=== PATIENT | female | born 1945 | race Caucasian/White ===

== ENCOUNTER 2021-08-23 16:47 | Emergency (ER) | payer MEDICARE, SELFPAY ==
[2021-08-23 16:50] VITALS: BP 160/89; PULSE 65; RESP 17; TEMP 36.1; O2SAT 96; BMI 28.3
--- NOTE | 2021-08-23 16:54 | EKG12_ITS ---
Test Reason : CHEST HEAVINESS Blood Pressure : / mmHG Vent. Rate : 066 BPM Atrial Rate : 066 BPM P-R Int : 152 ms QRS Dur : 102 ms QT Int : 432 ms P-R-T Axes : 048 -18 040 degrees QTc Int : 452 ms Normal sinus rhythm Normal ECG Confirmed by DAISY SOTO, MEHUL ([id number]), advertising editor ROSY ROMO ([id number]) on 08/25/2021 10:39:10 AM Referred By: AFIA Confirmed By:MEHUL VILLA MD
--- NOTE | 2021-08-23 17:04 | NURSING ---
NO OLD EKGS
--- NOTE | 2021-08-23 17:05 | RAD_ITS ---
INDICATION: chest pain EXAMINATION/TECHNIQUE: X-RAY - XR Chest 1 View COMPARISON: None. FINDINGS: The lungs are clear. The cardiomediastinal silhouette is unremarkable. No pleural effusion or pneumothorax. Degenerative changes of the thoracic spine and shoulders. RAD/Chest 1 View (Portable) IMPRESSION: No acute radiographic abnormalities. Electronically Signed: Aleksandar Jackson MD at 18:11 EST Tel , Service support ,
--- NOTE | 2021-08-23 17:08 | ED.VIS.CHEST ---
HPI History of Present Illness Chief Complaint: Chest Pain Informant: patient Onset/Context/Timing Onset: Month(s) Activity at onset: gradual Timing: Waxes and wanes Quality: Positive for Heaviness Location: - (Bilateral shoulders) Worsened By: Exertion Relieved By: Rest Associated Symptoms: Positive for Lightheadedness; Negative for Nausea, Vomiting, Diaphoresis, Dyspnea, Cough, Fever, Acid Reflux and Palpitations Narrative Narrative: Patient presents with chest pain that has been intermittent over the past 6 months. Patient states that comes on whenever she starts to walk. Patient states it is better whenever she sits down or lays down. Patient describes as a heaviness. Patient states it is more of a heaviness in both shoulders. Patient denies any heaviness over her chest wall. Patient admits to some lightheadedness and dizziness but states this is chronic for her. Patient denies any nausea or vomiting. Patient denies any shortness of breath or cough. Patient denies any diaphoresis. Patient has a history of coronary artery disease and has 2 cardiac stents placed. Patient states that her supervisor [employer] is in [facility], near [place]. Patient states that he wanted her to get an echocardiogram done but she has not followed up with this as of yet. Patient is visiting family here. CVD Risk Factors: Positive for Hypertension and Hypercholesterolemia; Negative for Diabetes, Family History 1' </=55 and Smoking PE Risk Factors: Negative for Prior DVT or PE and Cancer [facility] Medical History (Updated 08/23/21 @ 19:[address] Pete Kemp DO) Coronary artery disease HTN (hypertension) Allergy/AdvReac Type Severity Reaction Status Date / Time erythromycin base Allergy Rash Verified 08/23/21 16:49 Surgical History (Updated 08/23/21 @ 17:[address] Pete Kemp DO) Hx of appendectomy Hx of heart artery stent Social History (Updated 08/23/21 @ 17:[address] Pete Kemp DO) Smoking Status: Never smoker alcohol intake: current alcohol intake frequency: a few times a month ROS ROS ED Constitutional Constitutional ED: Denies chills or fever(s) Eyes Eyes: Reports blurry vision; Denies diplopia ENT ENT ED: Denies rhinorrhea or sore throat Cardiovascular Cardiovascular: Reports chest pain; Denies palpitations Respiratory/Chest Respiratory/Chest: Denies cough or dyspnea Gastrointestinal Gastrointestinal: Denies abdominal pain, nausea or vomiting Genitourinary Genitourinary ED: Denies dysuria or hematuria Musculoskeletal Musculoskeletal: Denies back pain or neck pain Integumentary Denies abscess or rash Neurologic Neurologic: Denies headache(s) or weakness Allergic/Immunologic Allergic/Immunologic ED: Denies mouth swelling or urticaria EXAM Physical Exam Const Vital Signs: 08/23/21 16:50 08/23/21 16:57 08/23/21 16:58 Temperature 96.9 F L Temperature Source Temporal Pulse Rate 65 Respiratory Rate 17 Respiratory Effort Normal Non-Labored Blood Pressure 160/89 H Blood Pressure Mean 112 Pulse Ox 96 Oxygen Delivery Method Room Air Room Air 08/23/21 17:55 08/23/21 18:00 Temperature Temperature Source Pulse Rate 64 61 Respiratory Rate 15 17 Respiratory Effort Blood Pressure 119/92 H 143/76 H Blood Pressure Mean 101 98 Pulse Ox 97 98 Oxygen Delivery Method Room Air Positive well nourished and well developed General Appearance ED: well developed HEENT normocephalic and atraumatic Eyes PERRL and EOMs intact bilaterally Neck supple and no JVD Chest Wall palpation of chest normal Resp normal respiratory effort and clear to auscultation bilaterally Effort and Inspection: Negative for respiratory distress Cardio regular rate, regular rhythm and no murmurs GI normal to inspection, nondistended, normoactive bowel sounds, soft to palpation, non-tender and non-distended Extremity normal to inspection General Extremety ED: Negative for edema or tenderness General Extremity: Negative for edema Neuro oriented x3, CN's II-XII intact bilaterally and no sensory deficits noted Sensorium / Orientation: awake and alert Motor Exam: strength 5/5 throughout Psych mental status grossly normal Heart Score History: Moderately Suspicious ECG: Normal Age: >/= 65 years Risk Factors: >/= 3 Risk Factors or History of CAD Troponin: </= Normal Limit Score: 5 MDM MDM MDM Narrative Medical decision making narrative: EKG was obtained. On my interpretation, it showed a normal sinus rhythm with a rate of 66. MA interval, QRS interval, and QTc intervals were all normal. [place] was normal. There are no acute ST or T wave changes. Portable 1 view chest x-ray was obtained. On my interpretation, lung melendez are clear. There is normal cardiac silhouette. Bony thorax is normal. There is no acute process noted. Radiologist also interpreted the x-ray and agrees. CBC and basic metabolic profile were obtained were within normal limits. Initial high-sensitivity troponin was normal at 4. 2-hour repeat high-sensitivity troponin was normal at 6. Patient feels better and wants to go home. Patient was given referral for primary care physician as well as cardiology here. Patient states that she lives 2 months here and then lives 2 months in [facility]. Patient states that she will still be here until middle of October. Patient was instructed to follow-up in 5 to 7 days. Patient was instructed return if worse in any way. Patient understands and is agreeable with the plan. All questions were answered. Lab Data Attestation: I reviewed the patient's lab results. Labs: Laboratory Results - last 24 hr 08/23/21 08/23/21 08/23/21 17:10 17:10 18:50 WBC 7.6 RBC 4.27 Hgb 13.5 Hct 42.2 MCV 98.8 MCH 31.6 MCHC 32.0 RDW Std Deviation 50.3 H RDW Coeff of Dane 13.9 Plt Count 191 MPV 10.8 Immature Gran % (Auto) 0.300 Neut % (Auto) 66.8 Lymph % (Auto) 25.0 Towns % (Auto) 6.5 Eos % (Auto) 1.1 Baso % (Auto) 0.3 Absolute Neuts (auto) 5.1 Absolute Lymphs (auto) 1.90 Nucleated RBC % 0 Sodium 141 Potassium 3.8 Chloride 109 H Carbon Dioxide 28.0 Anion Gap 4 L BUN 15 Creatinine 0.93 Estim Creat Clear Calc 53.54 Est GFR (MDRD) Af Amer 76 Est GFR (MDRD) Non-Af 63 BUN/Creatinine Ratio 16.2 Glucose 146 H Calcium 9.8 Troponin I High Sens 4 6 Radiography Chest X-Ray - ED: 1 View, Read by ED Physician, Read by Radiologist and Normal Diagnostic Testing: Clinical Impression(s) from Imaging Studies Chest X-Ray 08/23/21 17:05 IMPRESSION: No acute radiographic abnormalities. Electronically Signed: Aleksandar Jackson MD at 18:11 EST Tel , Service support , EKG Initial EKG: Attestation: I personally reviewed and interpreted this EKG as follows: Interpretation: Sinus Rhythm (66) and No Acute Injury Pattern Prior EKG tracings: not available for review Discharge Plan Triage Chief Complaint: Chest Pain ED Provider: Pete Kemp Dx/Rx/DC Orders Clinical Impression: Chest pain Instructions: ED Chest Pain, Uncertain Cause Referrals: JOSEE WAN [Other] Gavin Philip MD [STAFF PHYSICIAN] - 5-7 Days Graham Triplett MD [STAFF PHYSICIAN] - 5-7 Days Disposition Disposition: Home, Self Care
[2021-08-23 17:14] LABS: Absolute Neutrophil Count 5.1 X10^3/uL (2.0-7.7); Basophil# 0.02 X10^3/uL; Basophil% 0.3 % (0-1); Eosinophil# 0.08 X10^3/uL; Eosinophils% 1.1 % (0-5); Hematocrit 42.2 % (37-47); Hemoglobin 13.5 g/dL (12.0-15.0); Mean Corpuscular Hgb 31.6 pg (27.0-32.0); Mean Corpuscular Volume 98.8 fL (81-99); Mean Platelet Vol. 10.8 fl (6.2-12.0); Monocyte# 0.49 X10^3/uL; Monocyte% 6.5 % (0-10); NRBC Flagged by Analyzer 0 % (0-5); Neutrophil # 5.08 X10^3/uL (2.7-7.7); Neutrophil % 66.8 % (47-70); Platelet Count 191 K/mm3 (150-450); RBC Distribution Width CV 13.9 % (11.6-14.6); RBC Distribution Width SD 50.3 fl (35.1-43.9); Red Blood Count 4.27 M/mm3 (4.2-5.4); White Blood Count 7.6 K/mm3 (4.4-11.0)
[2021-08-23] MEDS: Aspirin 81 MG TAB.CHEW 324 MG PO (17:26)
[2021-08-23 17:32] LABS: Anion Gap 4 (5-15); BUN 15 mg/dL (7-18); BUN/Creat Ratio 16.2 RATIO (10-20); Calcium,Total 9.8 mg/dL (8.5-10.1); Chloride 109 mmol/L (98-107); Creatinine, Serum 0.93 mg/dL (0.55-1.02); EST Glomerular Filtration Rate 63 mL/min (>60); Est Glom Filt Rate - Afr Amer 76 mL/min (>60); Estimated Creatinine Clearance 53.54 ml/min; Glucose 146 mg/dL (74-106); Potassium 3.8 mmol/L (3.5-5.1); Sodium Level 141 mmol/L (136-145); Troponin-I HS 4 pg/mL (3.0-54.0)
[2021-08-23 17:55] VITALS: BP 119/92; PULSE 64; RESP 15; O2SAT 97
[2021-08-23 18:00] VITALS: BP 143/76; PULSE 61; RESP 17; O2SAT 98
[2021-08-23 19:30] LABS: Troponin-I HS 6 pg/mL (3.0-54.0)
[2021-08-23 19:56] VITALS: BP 137/75; PULSE 63; RESP 16; O2SAT 98
--- NOTE | 2021-08-23 19:56 | ED.RN ---
NITRO NOT GIVEN, PT DECLINES SHE IS NOT HAVING NOT CHEST DISCOMFORT.
== END 2021-08-23 19:57 | disposition home or self-care (01) ==
PROVIDERS: Emergency Provider Emergency Medicine
DX: R07.9 Chest pain, unspecified (principal); R42 Dizziness and giddiness; I25.10 Atherosclerotic heart disease of native coronary artery without angina pectoris; I10 Essential (primary) hypertension; Z95.5 Presence of coronary angioplasty implant and graft
CPT/HCPCS: 71045; 80048; 84484; 85025; 93005; 99285; A4216

== ENCOUNTER 2023-05-07 23:04 | Emergency (ER) | payer MEDICARE, SELFPAY ==
[2023-05-07 23:05] VITALS: BP 171/80; PULSE 77; RESP 18; TEMP 35.9; O2SAT 95; BMI 27.3
[2023-05-07 23:24] VITALS: PULSE 77; RESP 18; O2SAT 97
--- NOTE | 2023-05-07 23:26 | EX.ED.DYSGE1 ---
HPI History of Present Illness Chief Complaint: Cellulitis Informant: patient Narrative Narrative: 77-year-old female presenting to the emergency room I can concern for an infected dog bite. Patient states that about 4 to 5 days ago she was bit in the left medial lower leg by her dog. She notes the dog shots are up-to-date. She states that she normally cleans the wounds but this time she did not wash it right away. She notes that over the past couple days she has had discomfort redness developing. She denies any fevers. She denies any drainage from the site. She believes tetanus is up-to-date. She is not a diabetic. [facility] Medical History Coronary artery disease HTN (hypertension) Home Medications amoxicillin 875 mg-potassium clavulanate 125 mg tablet 875 mg (0.875 x 875-125 mg) PO Q12H #20 TABLETS 05/07/23 [Rx Last Taken Unknown] Allergy/AdvReac Type Severity Reaction Status Date / Time erythromycin base Allergy Rash Verified 05/07/23 23:07 Surgical History Hx of appendectomy Hx of heart artery stent Social History Smoking Status: Never smoker alcohol intake: current alcohol intake frequency: a few times a month ROS ROS ED Constitutional Constitutional ED: Denies chills or weight loss Eyes Eyes: Denies change in vision or diplopia ENT ENT ED: Denies ear pain, rhinorrhea or sore throat Cardiovascular Cardiovascular: Denies chest pain, orthopnea, palpitations or racing heartbeat Respiratory/Chest Respiratory/Chest: Denies cough, dyspnea or orthopnea Gastrointestinal Gastrointestinal: Denies abdominal pain, diarrhea, nausea or vomiting Genitourinary Genitourinary ED: Denies dysuria, hematuria or urinary frequency Musculoskeletal Musculoskeletal: Denies arthralgias or myalgias Integumentary Reports rash; Denies abscess Neurologic Neurologic: Denies headache(s) or weakness Psychiatric Psychiatric: Denies anxiety, depression, suicidal ideation or suicidal thoughts Endocrine Endocrinology: Denies polydipsia, polyphagia or polyuria Allergic/Immunologic Allergic/Immunologic ED: Denies mouth swelling, tongue swelling or urticaria EXAM Physical Exam Const Vital Signs: 05/07/23 23:05 Temperature 96.7 F L Temperature Source Temporal Pulse Rate 77 Respiratory Rate 18 Blood Pressure 171/80 H Blood Pressure Mean 110 Pulse Ox 95 Oxygen Delivery Method Room Air Positive well nourished and well developed General Appearance ED: well developed HEENT Reports normocephalic, head/scalp atraumatic and moist mucous membranes Eyes PERRL and EOMs intact bilaterally Neck no lymphadenopathy, supple and no JVD Resp normal respiratory effort and clear to auscultation bilaterally Cardio regular rate, regular rhythm and no murmurs GI normal to inspection, nondistended, normoactive bowel sounds and non-tender Palpation: soft Back/Spine no CVA tenderness and normal ROM Extremity Extremity Narrative: There is a healing wound to the medial distal left lower leg. There is surrounding erythema. There is no lymphangitis. Erythema does not extend down to the foot or above the proximal one third of the leg. The calf is nontender. There is no palpable cords. There is no drainage from the wound General Extremety ED: Negative for edema General Extremity: Negative for edema Neuro oriented x3 and CN's II-XII intact bilaterally Sensorium / Orientation: alert Motor Exam: strength 5/5 throughout Psych mental status grossly normal Mood & Affect: Negative for depressed or tearful Skin no rashes or lesions noted and no wounds MDM MDM MDM Narrative Medical decision making narrative: Patient will be started on Augmentin. She was given return instructions. At this point I do not believe she necessitates admission to the hospital. Patient understands return instructions Discharge Plan Triage Chief Complaint: Cellulitis Other Complaint: Bite ED Provider: Payam Torres Dx/Rx/DC Orders Clinical Impression: Dog bite of left lower leg, Cellulitis of leg Instructions: ED Cellulitis, ED Dog Bite Prescriptions: New amoxicillin-pot clavulanate [amoxicillin-pot clavulanate] 875-125 mg tablet 875 mg PO Q12H Qty: 20 0RF Primary Care Provider: Richard Deluca,Out of Referrals: [facility] Doctor,Out of [Primary Care Provider] - Disposition Disposition: Home, Self Care
[2023-05-07] MEDS: Amox/Clavulanate 875 MG Tablet PO (23:43)
== END 2023-05-07 23:55 | disposition home or self-care (01) ==
LOC: ED 23:31
PROVIDERS: Emergency Provider Emergency Medicine; Visit Provider Emergency Medicine
DX: S81.852A Open bite, left lower leg, initial encounter (principal); L03.116 Cellulitis of left lower limb; I25.10 Atherosclerotic heart disease of native coronary artery without angina pectoris; W54.0XXA Bitten by dog, initial encounter
CPT/HCPCS: 99283